=== PATIENT | male | born 1945 | race Asian ===

== ENCOUNTER 2022-01-09 08:30 | Day surgery (SDC) | payer OTHER, BC ==
[2022-01-04 14:11] VITALS: BMI 25.8
[2022-01-09 09:42] VITALS: TEMP 97.8
[2022-01-09 10:59] VITALS: BP 114/71; PULSE 75
== END 2022-01-09 10:25 | disposition home or self-care (01) ==
LOC: FASU-ENDO 08:30
PROVIDERS: ATTEND Internal Medicine Gastroenterology
PROC: 0DBL8ZX Excision of Transverse Colon, Via Natural or Artificial Opening Endoscopic, Diagnostic (ICD-10-PCS; 2022-01-09)
PROC: 0DBL8ZX Excision of Transverse Colon, Via Natural or Artificial Opening Endoscopic, Diagnostic (ICD-10-PCS; principal; 2022-01-09 09:10)
DX: Z86.010 Personal history of colon polyps (principal); Z83.71 Family history of colonic polyps; D12.2 Benign neoplasm of ascending colon; D12.3 Benign neoplasm of transverse colon
CPT/HCPCS: 88305-TC